=== PATIENT | male | born 1950 | race Caucasian/White ===

== ENCOUNTER 2024-02-28 12:10 | Inpatient (IN) | payer MEDICARE, BC, OTHER, SELFPAY ==
[2024-02-28] VITALS (73 sets, daily range): BP systolic 75–155; BP diastolic 62–117; BMI 18.6
[2024-02-28] MEDS: ADENOCARD 6 MG IV (06:11)
[2024-02-28] MEDS: ADENOCARD 12 MG IV (06:14)
--- NOTE | 2024-02-28 06:16 | ED.GENMED ---
History of Present Illness
General
Chief Complaint: Heart Rate Problem
Source: patient and records
Time Seen by Provider: 02/28/24 06:16
History of Present Illness
History of Present Illness:
73-year-old male presents emergency department after being noted to have an elevated heart rate when he awoke this morning. Reportedly en route heart rate was between the 120s and 140s. With a pulse ox of 85% on room air. Patient's only complaint
is mild dyspnea. He is overall poor historian, and it is unclear when this dyspnea began. He denies associated fever, chills, chest pain or pressure, headache, abdominal pain. He also states that he is thirsty and his mouth feels dry. No other
complaints noted. Patient has a history of atrial fibrillation as documented on skilled nursing paperwork, it does not appear that he is anticoagulated.
Past History
Past History
ED Past Medical History: Other (Hypertension, hypercholesterolemia, CVA, testicular cancer, A-fib)
Social History
Tobacco: Non-smoker
Alcohol: None
Drug: None
Living: skilled nursing
Phy Exam
Physical Exam
Physical Exam:
GENERAL: Alert , in no apparent distress
EYE: pupils equal and reactive, no photophobia, conjunctive slightly pale
NECK: Supple, no significant adenopathy.
ENT: o/p clr, mm very dry
CARDIAC: Regular rate and rhythm, tachycardic.
LUNGS: Clear breath sounds bilaterally, no acute respiratory distress, no wheezes/rales/rhonchi
ABDOMEN: Soft, without focal tenderness, no r/g, no cvat
NEUROLOGICAL: Alert and oriented, baseline residual left-sided weakness
SKIN: Warm and dry, skin intact.
MUSCULOSKELETAL: No edema, well perfused.
PSYCH: Normal and appropriate interaction.
Scores
[id number] Score for Afib Stroke Risk
Age in Years (65=0, 65-74=1, >/=75=2): > or = 75
Sex (Female=+1): Male
Congestive Heart Failure History (Yes=+1): No
Hypertension History (Yes=+1): Yes
Stroke/TIA/Thromboembolism History (Yes=+2): Yes
Vascular Disease History (Yes=+1): No
Diabetes Mellitus (Yes=+1): No
Score: 5
Anticoagulation Recommendations: Recommend anticoagulation (as validated in nonvalvular fib)
Course
Orders/Labs/Results
Orders:
Orders
02/28/24 05:53
Electrocardiogram (*1) Urgent
Reason for Study: Other
Other Reason for Exam: Respiratory Distress
Cardiac Monitoring- Treatment ONCE
EKG- Treatment ONCE
O2 Therapy [RESP] Urgent
Titrate/Wean O2 to maintain O2 sat greater than (%): 93
Special Instructions: TO MAINTAIN CONTINUOUS O2 SATS >/= 93%
02/28/24 06:07
Adenosine [Adenocard] 6 mg .ROUTE .STK-MED ONE
02/28/24 06:11
Adenosine [Adenocard] 6 mg IV NOW STA
02/28/24 06:12
Adenosine [Adenocard] 12 mg .ROUTE .STK-MED ONE
Diltiazem HCl [Cardizem] 25 mg .ROUTE .STK-MED ONE
02/28/24 06:14
Adenosine [Adenocard] 12 mg IV NOW STA
02/28/24 06:16
Diltiazem 125 mg/125 ml Nss [Cardizem] 125 mg in 125 ml IV NOW
Initial dose in mg/hr, then titrate:: 5
Titrate to keep:: Heart rate 80-100 bpm
Titrate by mg/hr:: 5 mg/hr
Frequency of titrations (minutes):: 15
Maximum dose in mg/hr:: 15
Diltiazem HCl [Cardizem] 10 mg IV NOW STA
02/28/24 06:18
0.9% Sodium Chloride 500 ml [Nss] 500 ml IV BOLUS
02/28/24 07:02
Complete Blood Count/With Diff Urgent
Comprehensive Metabolic Panel Urgent
D-Dimer Urgent
NT-proBNP Urgent
PTT Urgent
Comment: ADDON
TSH Reflex To Free T4 Urgent
Comment: ADD ON
Troponin I Urgent
02/28/24 08:18
CT Chest Pe Study Urgent
Comment:
Reason For Exam: HYPOXIA, AFIB, SOB
02/28/24 10:08
Furosemide [Lasix] 20 mg IV NOW STA
02/28/24 10:09
PTT Urgent
Comment: Obtain baseline before beginning heparin infusion if not already collected
Heparin 3,600 units IV NOW STA
Nursing to Place Non Medication Order As Directed
Physician Order: PTT 6 hours after initial start of Heparin infusion
02/28/24 10:15
Heparin [id number] Units/250 ml 25,000 units in 250 ml IV PER PROTOCOL
Weight to be used for heparin protocol in kilograms (kg):: 60.5
Protocol:: Cardiac Tx/Acute Coronary
PTT Goal Range to be used:: PTT 73 to 111 seconds
Order type:: Initial
INITIAL Infusion Dose (UNITS/KG/hr) & then follow protocol:: 12 units/kg/hr
Infusion Dose in UNITS/hr & then follow protocol (UNITS/hr):: 750
INFUSION RATE in mL/hr & then follow protocol (mL/hr):: 7.5
PTT less than or equal to 64 seconds:: Increase rate by 200 units/hr (+ 2 mL/hr)
PTT 64.1 to 72.9 seconds:: Increase rate by 100 units/hr (+ 1 mL/hr)
PTT 73 to 111 seconds:: Target Range. No change in rate.
PTT 111.1 to 130.9 seconds:: Decrease rate by 100 units/hr (- 1 mL/hr)
PTT 131 to 199.9 seconds:: HOLD for 1 hr. Then decrease rate by 200 units/hr (- 2 mL/hr)
PTT greater than or equal to 200 seconds:: HOLD for 2 hrs & Notify Provider. Then decrease by 200 units/hr (-
2 mL/hr)
Lab follow-up:: Each change, PTT q6h until 2 consecutive are therapeutic. Then PTT
daily.
02/28/24 11:03
Add On- LAB Urgent
Tests Added?: PTT
02/28/24 11:13
CARDIOLOGY CONSULT Routine
Consulting Provider: Kurt Willis
Was physician already notified: Yes
02/28/24 11:50
Admit/Transfer Patient As Directed
Co-Sign Provider:
Level of Care: Inpatient admission
Assign to:: IMU- Intermediate Care
Physician / Group: Nirali Barry - hospitalists
Diagnosis: Chronic rapid AFib with RVR and acute CHF
Reason for Hospitalization: Chronic rapid AFib with RVR and acute CHF- IV Cardizem and IV Heparin
Expected length of stay greater than two midnights?: Yes
ELOS- Estimated Length of Stay in days: 4
I certify the patient meets the requirements for IP care: Yes
PRN Pain Medication Management As Directed
May give lesser potent ordered pain med per pt: Yes
preference::
Protocol:: Medication orders for pain may be administered in a
manner that supports deferring to patient preference
when the pt is:
- Requesting an ordered lesser potent pain medication.
Least to most potent pain medications are defined
as: acetaminophen < NSAID < tramadol < opioids
(morphine, oxycodone, hydromorphone).
- Requesting a lesser dose of the same medication IF
ORDERED.
- Requesting a less intrusive route of administration
if both routes are prescribed by the provider (PO <
IV).
02/28/24 11:51
Code Status As Directed
Resuscitation Status: Do not resuscitate
Reached after discussion with pt or family/Healthcare POA: Yes
Based on pt advanced directive or healthcare POA form: Yes
Decision communicated with: sister Jackie
DNR Bracelet Application ONCE
02/28/24 16:50
PTT Urgent
Abnormal Lab Results
02/28/24
07:02
WBC 12.2 H 10^3/uL
(4.8-10.8)
RDW 16.0 H %
(11.5-14.5)
MPV 11.7 H fL
(7.4-10.4)
Abs Immat Gran (auto) 0.1 H 10^3/uL
(0-0.05)
Absolute Neuts (auto) 8.8 H 10^3/uL
(1.4-6.5)
Absolute Monos (auto) 0.9 H 10^3/uL
(0.1-0.6)
Lymphocytes % 19.1 L %
(20.5-51.1)
APTT 40.0 H Sec
(23.4-35.0)
D-Dimer 2.82 H ug/mlFEU
(0.00-0.50)
Chloride 112 H mmol/L
(98-107)
Carbon Dioxide 17 L mmol/L
(22-30)
BUN 61 H mg/dl
(9-20)
Glucose 120 H mg/dl
(70-99)
Troponin I 0.287 H* ng/ml
Total Protein 6.1 L g/dl
(6.3-8.2)
Albumin 3.3 L g/dl
(3.5-5.0)
02/28/24 07:02
02/28/24 07:02
Vital Signs
Initial and Last Documented VS:
Initial Vital Signs
Pulse Resp BP Pulse Ox
150 20 98/74 96
02/28/24 05:55 02/28/24 05:55 02/28/24 05:55 02/28/24 05:55
Last Documented Vital Signs
Temp Pulse Resp BP Pulse Ox
97.2 F 106 32 111/76 97
02/28/24 06:38 02/28/24 13:15 02/28/24 13:15 02/28/24 13:11 02/28/24 13:15
*Critical Care Note
Total Time (30-74mins, 75-104mins- exclusive of procedures): 35
Update Note
Update Note:
Patient presents to the Emergency Department with elevated heart rate, dyspnea
Number and Complexity of Problems Addressed at the Encounter
� Chronic conditions affecting care:
� Acute Exacerbation and/or Progression of Chronic Illness:
� Differential Diagnosis includes: But not limited to arrhythmia such as SVT, A-fib, PE, ACS, medication reaction, etc. etc.
Amount and/or Complexity of Data to be Reviewed and Analyzed
� I performed an independent evaluation of and my interpretation is:
EKG: Read by me, SVT at a rate of 149, T wave inversions noted laterally likely related to LVH� No prior for comparison noted
CT:Rads read: 1. No pulmonary embolism is identified.
2. Post left lower lobectomy.
3. Small right pleural effusion and adjacent atelectasis. Bilateral increased interstitial opacity with multifocal mixed groundglass and airspace opacities which are predominantly peribronchovascular. While infection cannot be definitively
excluded, these findings are most likely related to interstitial and alveolar edema.
4. Cardiomegaly. Right atrial and left ventricular enlargement. Contrast reflux into the inferior vena cava and hepatic veins, a finding that may be seen in association with right heart dysfunction.
5. Secretions within the trachea.
6. Ectasia ascending aorta, 4.2 cm maximum diameter.
Xrays:
Laboratory Studies:
Other:
� Review of other/old records reveals: Review of skilled nursing notes reveals patient does have a history of A-fib maintained on metoprolol 12.5 mg twice daily no anticoagulation noted
� Clinical information was obtained by an independent historian:
� Prescriptions/Medications Considered but not given:
� Further testing considered but not performed:
Risk of Complications and/or Morbidity or Mortality of Patient Management
� Social determinants of health affecting care:
� Discussion with other providers (PCP, Hospitalists, Consultants, etc):
� Escalation of care including admission/observation vs risk of discharge considered: 6:20 AM patient given 6 mg of adenosine without effect. Patient given 12 mg of adenosine and noted to temporarily have a slower heart rate
with what appears to be an underlying A-fib, narrow complex. Rate return to the 140s, Cardizem started. 7:00 AM patient resting comfortably, on nasal cannula, pulse ox within normal limits. He had transient hypotension status post Cardizem bolus
however this is resolved, blood pressure now normal, Cardizem at 5 mg, heart rate in the low 110s. Will continue to monitor.
On 5mg/hr cardizem gtt, sbp low 100's. No PE. Heparin ordered, Chads vasc 5. No cp. Will admit, hospitalist made aware. Suspect hf related to afib, trop elevation likely demand ischemia.
ED Attending Note
-
Portions of this chart may have been created with voice recognition software.� Occasional wrong word or��sound alike� substitutions may have occurred due to the inherent limitations of voice recognition software.
Discharge Plan
Departure
Patient Disposition: Admit
Date of Disposition: 02/28/24
Time of Disposition: 10:12
Admit to: Telemetry
Presentation/result/management discussed w/ accepting MD/DO: Hospitalist
Condition: Fair
Discharge Problem:
A-fib, Heart failure
Interventions
Interventions:
*Risk Screen - Suicide Last Done: 02/28/24 05:57
*General Assessment Last Done: 02/28/24 05:57
*Neglect/Abuse Screening Last Done: 02/28/24 05:57
ED- Fall Risk Assessment Last Done: 02/28/24 05:57
*ED COVID-19 Vaccine History Last Done: 02/28/24 05:57
ED- Cardiac Assessment Last Done: 02/28/24 06:00
ED- Pulmonary Assessment Last Done: 02/28/24 06:00
[2024-02-28] MEDS: NSS 500 IV (06:18)
[2024-02-28] MEDS: CARDIZEM 10 MG IV (06:26)
[2024-02-28] MEDS: CARDIZEM 125 IV (06:40)
[2024-02-28 07:14] LABS: % Basophils 0.4 % (0-2); % Eosinophils 0.2 % (0-6); % Immature Granulocytes 0.5 % (0-0.5); % Lymphocytes 19.1 % (20.5-51.1); % Monocytes 7.7 % (1.7-9.3); % Neutrophils 72.1 % (42.2-75.2); Absolute Basophils 0.1 10^3/uL (0-0.2); Absolute Immature Granulocytes 0.1 10^3/uL (0-0.05); Absolute Lymphocytes 2.3 10^3/uL (1.2-3.4); Absolute Monocytes 0.9 10^3/uL (0.1-0.6); Absolute Neutrophils 8.8 10^3/uL (1.4-6.5); Hematocrit 45.2 % (39.0-52.0); Hemoglobin 15.2 g/dL (13.0-18.0); Mean Corp Hgb Conc. 33.6 g/dL (33.0-37.0); Mean Corpuscular Hgb 29.1 pg (27.0-31.0); Mean Corpuscular Volume 86.4 fL (80.0-94.0); Mean Platelet Volume 11.7 fL (7.4-10.4); Nucleated Red Blood Cells % 0 % (-); Platelet Count 217 10^3/uL (130-400); Red Blood Cell Count 5.23 10^6/uL (4.70-6.10); White Blood Cell Count 12.2 10^3/uL (4.8-10.8)
[2024-02-28 07:22] LABS: ALT (SGPT) 13 U/L (0-50); AST (SGOT) 17 U/L (17-59); Albumin 3.3 g/dl (3.5-5.0); Alkaline Phosphatase 83 U/L (38-126); Blood Urea Nitrogen 61 mg/dl (9-20); Calcium 8.5 mg/dl (8.4-10.2); Carbon Dioxide 17 mmol/L (22-30); Chloride 112 mmol/L (98-107); Estimated Creatinine Clearance 55 ml/min; Glucose 120 mg/dl (70-99); Potassium 4.1 mmol/L (3.5-5.1); Sodium 140 mmol/L (135-145); Total Bilirubin 1.2 mg/dl (0.2-1.3); Total Protein 6.1 g/dl (6.3-8.2); eGFR > 60.00
[2024-02-28 07:35] LABS: NT-proBNP 13300 pg/ml; Troponin I 0.287 ng/ml
[2024-02-28 08:12] LABS: D-Dimer 2.82 ug/mlFEU (0.00-0.50)
[2024-02-28] MEDS: LASIX 20 MG IV (10:36)
[2024-02-28] MEDS: HEPARIN 3600 UNITS IV (10:51)
[2024-02-28] MEDS: HEPARIN 25000 UNITS/250 ML IV (10:52)
--- NOTE | 2024-02-28 11:26 | HPS.HSE ---
Family Physician
-
Family Physician: Tyron Gore
Chief Complaint
-
HR problem
History of Present Illness
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
from [facility] with elevated HR upon awaking. Patient is a poor historian so history is somewhat limited. Some of the chronic history was obtained through his sister Jackie who lives in [place]. He remembers experiencing some
central chest pain yesterday, but cannot characterize it. the chest pain is now resolved. He also mentions some dyspnea. At present denies anything except thirst. No fever/chills, no abd complaints. No palpitations. Hx per records does show chronic
A. Fib and for unclear reasons patient is not on AC.
Medical History
Past Medical History
Past Medical History: Reports Other ([place] patient since 2020, hx of chronic Afib, HLD, hx of CVA 2013 (L sided hemiplegia), PVD, Testicular cancer s/p removal, hx of lung cancer s/p resection ~2011, Anxiety/Depression, Essential HTN, chronic FTT,
former smoker)
Past Surgical History: Reports Other (testicular removal and lung resection)
Social History
Tobacco: Former Smoker
Alcohol: Occasional
Drug: None
Personal: Single
Living: Senior Living
Employment: Disabled
Family History
Family History: Not pertinent
Allergies / Home Medications
Allergies reflects when Allergies were last updated in [employer].
Home Medications with original date entered in [employer]
Allergy/Medication List:
Allergies
Allergy/AdvReac Type Severity Reaction Status Date / Time
No Known Allergies Allergy Unverified 02/28/24 05:56
Home Medications
acetaminophen 325 mg tablet (Tylenol) 650 mg PO Q4HPRN PRN MILD PAIN 02/28/24
bisacodyl 10 mg rectal suppository (Dulcolax (bisacodyl)) 10 mg KS DAILYPRN PRN IF NO BM AFTR MOM 02/28/24
eyelid cleansers pads 1 pad topical BID BOTH EYES 02/28/24
lisinopril 20 mg tablet 20 mg PO DAILY 02/28/24
magnesium hydroxide 400 mg/5 mL oral suspension (Milk of Magnesia) 2,400 mg PO DAILYPRN PRN CONSTIPATION 02/28/24
metoprolol tartrate 25 mg tablet 12.5 mg PO BID 02/28/24
mirtazapine 7.5 mg tablet 7.5 mg PO HS 02/28/24
sertraline 100 mg tablet 100 mg PO DAILY 02/28/24
simvastatin 10 mg tablet (Zocor) 10 mg PO HS 02/28/24
sodium phosphates 19 gram-7 gram/118 mL enema (Fleet Enema) 118 ml [place] DAILYPRN PRN IF NO BM AFTR DULCOLAX 02/28/24
Review of Systems
-
Unable to obtain full review of systems at this time due to: Acuity
Physical Exam
Vital Signs
Vital Signs
Temp Pulse Resp BP Pulse Ox
97.2 F 148 28 89/68 91
02/28/24 06:38 02/28/24 11:00 02/28/24 11:00 02/28/24 11:00 02/28/24 10:50
Physical Exam
General: Conversant, Appears Chronically Ill and Cachectic
HEENT: NormoCephalic and Anicteric
Respiratory: Clear
Cardiac: Irregular Rhythm and Tachycardia
GI: Soft
Musculoskeletal: Edema, Left Lower Extremity and Edema, Right Lower Extremity
Neuro: Awake, Alert and Other (L hemiplegia)
Psych: Calm
Laboratory Results
-
02/28/24 07:02
02/28/24 07:02
Laboratory Results
APTT 40.0 Sec (23.4-35.0) H 02/28/24 07:02
Total Bilirubin 1.2 mg/dl (0.2-1.3) 02/28/24 07:02
AST 17 U/L (17-59) 02/28/24 07:02
ALT 13 U/L (0-50) 02/28/24 07:02
Alkaline Phosphatase 83 U/L (38-126) 02/28/24 07:02
Troponin I 0.287 ng/ml H* 02/28/24 07:02
Data Reviewed
-
CT Scan: Report Reviewed by me
Lab Data: Labs Reviewed by me
Impression/Plan
-
Assessment:
Chronic Afib with RVR
- continue IV Cardizem drip; may need to consider Amio if BP limiting
- continue IV Heparin drip; CHADS-VASC of 7 (PVD, CVA, Age, HTN, CHF)
- CBC cards consulted
Acute CHF, unknown type
- CT Suggestive of interstitial edema
- obtain Echo
- current BP precludes IV diuretics currently, monitor I/Os, weights
- once hemodynamically more stable, can attempt diuresis
- CBC cards consulted
nonischemic myocardial injury from rapid Afib and acute CHF
- trend trops to peak
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
- obtain baseline CT head
Essential HTN
- hold KACIE/BB
HLD
PVD
- continue statin
Testicular cancer s/p removal
hx of lung cancer s/p LLL resection ~2011
Anxiety/Depression
- continue Zoloft
- home Remeron
chronic FTT
Cachexia
- nutrition evaluation
former smoker
DVT ppx: IV heparin
Code: DNR/DNI confirmed by sister Jackie and records
--- NOTE | 2024-02-28 12:12 | CON.CAR ---
Addendum entered and electronically signed by Kurt Willis MD 02/28/24 17:03:
Patient seen and examined in collaboration with STRATEGIC SOURCING SPECIALIST; agree with below. 73-year-old male with medical history as outlined below, including previous CVA with chronic left-sided weakness, cognitive impairment, chronic atrial fibrillation (not on
anticoagulation; reason unknown), lung cancer status-post previous resection brought to the ER from the alf due to elevated heart rates. Patient is a poor historian cardiology consulted for A-fib with RVR and suspected CHF.
-The patient underwent an echocardiogram today which revealed an LVEF of 20-25%.
-The patient is a poor candidate for any aggressive measures (ischemic workup or ICD); conservative cardiac management.
-Discontinue Cardizem drip (no benefit in CHF).
-Start Toprol-XL 25 mg daily.
-Will start digoxin load.
-Will start SGLT2-inhibitor.
-Further GDMT will likely be limited by blood pressure; may be able to tolerate a lower dose of lisinopril (currently on 20 mg at home) prior to discharge.
-Currently on a heparin drip started by the primary team; transition to NOAC, if no contraindication (patient was not on systemic anticoagulation as an outpatient).
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
Original Note:
Consultation
Consultation Request
Date/Time Consultation Requested: 02/28/24 1113
Date/Time Consultation Performed: 02/28/24 1222
Requesting Provider: Dr. Barry
Performing Provider: Augusta HALE for Dr. Willis
Reason for Consultation: AFIB, CHF
Medical History
-
Chief Complaint: tachycardia
History of Present Illness:
73 y/o male with hx CVA with chronic L-sided weakness and cognitive impairment, chronic AFIB per chart, but not on OAC, bradycardia (per chart), HTN, HLD, testicular cancer, lung cancer with hx resection, anxiety, and depression who is here for
evaluation of elevated HR noted at [place]. Here, he is in atrial flutter at 150 BPM. He did receive adenosine x 2 in ER. He is now on diltiazem and heparin drips. BP borderline at times. Otherwise, by EMS, his oxygen sat was noted to be low and he is on
O2 by CA. He does report some SOB. He is laying flat and is on RA currently, in no distress. 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
Past Medical History
Past Medical History: Arrhythmias, Cancer, CVA, HTN, Hypercholesterolemia and Psychiatric (anxiety/depression)
Social History
Tobacco: Former Smoker (per chart)
Living: Alf
Family History
Family History: Reviewed & Not Pertinent
Allergies / Home Medications
Allergy/AdvReac Type Severity Reaction Status Date / Time
No Known Allergies Allergy Unverified 02/28/24 05:56
�Medication �Instructions �Recorded �Confirmed �Type
acetaminophen 325 mg tablet 650 mg PO Q4HPRN PRN MILD PAIN 02/28/24 02/28/24 History
(Tylenol)
bisacodyl 10 mg rectal suppository 10 mg [place] DAILYPRN PRN IF NO BM 02/28/24 02/28/24 History
(Dulcolax (bisacodyl)) AFTR MOM
eyelid cleansers pads 1 pad topical BID BOTH EYES 02/28/24 02/28/24 History
lisinopril 20 mg tablet 20 mg PO DAILY 02/28/24 02/28/24 History
magnesium hydroxide 400 mg/5 mL 2,400 mg PO DAILYPRN PRN 02/28/24 02/28/24 History
oral suspension (Milk of Magnesia) CONSTIPATION
metoprolol tartrate 25 mg tablet 12.5 mg PO BID 02/28/24 02/28/24 History
mirtazapine 7.5 mg tablet 7.5 mg PO HS 02/28/24 02/28/24 History
sertraline 100 mg tablet 100 mg PO DAILY 02/28/24 02/28/24 History
simvastatin 10 mg tablet (Zocor) 10 mg PO HS 02/28/24 02/28/24 History
sodium phosphates 19 gram-7 118 ml [place] DAILYPRN PRN IF NO BM 02/28/24 02/28/24 History
gram/118 mL enema (Fleet Enema) AFTR DULCOLAX
Review of Systems
-
History Source: Patient and Other (chart)
Respiratory: Trouble Breathing
Physical Exam
Vital Signs
Temp Pulse Resp BP Pulse Ox
97.2 F 150 17 104/90 96
02/28/24 06:38 02/28/24 12:00 02/28/24 12:00 02/28/24 12:00 02/28/24 12:00
Lab Results
02/28/24 07:02
02/28/24 07:02
Troponin I 0.287 ng/ml H* 02/28/24 07:02
Pzy-A-Zfxpcqbouoo Pept 97334 pg/ml 02/28/24 07:02
Physical Exam
General: No Apparent Distress
HEENT: Normocephalic
Respiratory: Other (absent LLL, otherwise clear lungs to my assessment)
Cardiac: Irregular Rhythm
Musculoskeletal: No Edema
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
Psych: Calm
Impression / Plan
-
Atrial flutter, fast, type unknown:
-hx permanent AFIB per chart. Rates currently fast. Continue IV diltiazem, which requires intensive monitoring. BP on low end, so will need to monitor.
-not on OAC with reason unclear. He has a [id number] score of 6 for age, HTN, hx CVA, CHF. IV heparin initiated (which requires intensive monitoring). No obvious contraindication to AC on my review (with elevated risk for stroke as noted), so
likely transition to PO. Details of previous stroke unclear- CT head pending.
-check echo once HR better, TSH added to labs
Acute HF (type unknown):
-BNP 13,[address] scan suggestive excess fluid
-given dose of IV lasix- monitor response- he does not look like he needs another dose today- reassess in AM
-echo when HR better
Abnormal troponin:
-suspect acute non-ischemic myocardial injury in setting of AFIB with RVR
-trend to peak
-obtain echo when HR is better
HTN:
-hold ACEI as BP on low end
-continue metoprolol and diltiazem
-follow BP/HR
Data Reviewed
-
EKG: Tracing Personally Visualized and interpreted (atrial flutter [address] Scan: Report Reviewed by me (Chest CT: No pulmonary embolism, Post left lower lobectomy, Small R pleural effusion and adjacent atelectasis. Bilateral increased interstitial opacity with multifocal mixed groundglass and airspace opacities which
are predominantly peribronchovascular. Cardiomegaly...) and Other (Right atrial and left ventricular enlargement. Contrast reflux into the inferior vena cava and hepatic veins, Secretions within the trachea. Ectasia ascending aorta, 4.2 cm)
Labs: Labs Reviewed by me
--- NOTE | 2024-02-28 16:45 | W.PN.UPDATE ---
Addendum entered and electronically signed by Kurt Willis MD 02/28/24 17:14:
Agree with below.
-Contacted the long term who was unable to give an answer as to why patient is not on anticoagulation, as he has chronic atrial fibrillation.
-The patient may not be on anticoagulation for multiple reasons--including a significant bleed previously, hemorrhagic stroke, etc.
-Will discontinue heparin drip due to the aforementioned; maintain conservative management.
Original Note:
Update Note
Progress Note Update
Patient's echo revealed EF 20-25%. Will stop diltiazem drip, will start Toprol XL 25 mg daily. Will start digoxin with load 250 mcg IV now and 250 mcg IV 6 hours, and 125 mcg PO daily to start. Adjust as needed. Overall plan for conservative
management. Discussed with RN and updated Dr. Barry.
--- NOTE | 2024-02-28 16:52 | PTOTSP ---
ST Acute Care Evaluation
Pt currently presents with clinical symptoms of mild to moderate oropharyngeal dysphagia.
Recommendations:
- NPO x meds whole/crushed in puree.
- ARHP - ice chips sparingly after oral care, only when pt is fully awake/alert.
- Aspiration precautions: ARHP/meds only when pt is fully awake, alert, and upright; oral care QID; suctioning if needed.
- GAS ENGINE PERFORMANCE ENGINEER to f/u to re-assess pt's candidacy for PO diet initiation as well as to determine whether or not pt would benefit from an instrumental swallow study.
[2024-02-28 16:59] LABS: APTT > 200 Sec (23.4-35.0)
[2024-02-28 17:01] LABS: Troponin I 0.267 ng/ml
[2024-02-28] MEDS: TOPROL XL 25 MG PO (17:12)
[2024-02-28] MEDS: LANOXIN 250 MCG IV ×2 (17:15→22:18)
--- NOTE | 2024-02-28 18:11 | PTCARENOTE ---
Rec'd pt on admission from [facility], confused at times. Remains in A fib. BP stable. on room air. oriented to unit as best as possible given cognitive limitations.
[2024-02-28] MEDS: LIPITOR PO (22:17)
[2024-02-28 22:54] LABS: Troponin I 0.236 ng/ml
[2024-02-29] VITALS (24 sets, daily range): BP systolic 133–169; BP diastolic 97–142; PULSE 94; O2SAT 97–98; BMI 17.7
[2024-02-29 04:09] LABS: Hematocrit 47.2 % (39.0-52.0); Hemoglobin 15.9 g/dL (13.0-18.0); Mean Corp Hgb Conc. 33.7 g/dL (33.0-37.0); Mean Corpuscular Hgb 29.7 pg (27.0-31.0); Mean Corpuscular Volume 88.2 fL (80.0-94.0); Mean Platelet Volume 11.3 fL (7.4-10.4); Platelet Count 160 10^3/uL (130-400); Red Blood Cell Count 5.35 10^6/uL (4.70-6.10); Red Cell Dist. Width 15.7 % (11.5-14.5); White Blood Cell Count 9.1 10^3/uL (4.8-10.8)
[2024-02-29] MEDS: LOPRESSOR 5 MG IV (04:12)
[2024-02-29 04:21] LABS: Blood Urea Nitrogen 55 mg/dl (9-20); Carbon Dioxide 25 mmol/L (22-30); Chloride 110 mmol/L (98-107); Estimated Creatinine Clearance 52 ml/min; Glucose 93 mg/dl (70-99); Magnesium 2.4 mg/dl (1.6-2.3); Potassium 4.2 mmol/L (3.5-5.1); Sodium 142 mmol/L (135-145); eGFR > 60.00
--- NOTE | 2024-02-29 04:25 | PTCARENOTE ---
pt with increasing BP throughout night, pt sleeping. notified covering MANAGEMENT INTERN, orders entered for IV lopressor. med given per SEP.
[2024-02-29 04:32] LABS: Troponin I 0.278 ng/ml
[2024-02-29 04:55] LABS: TSH 4.27 uIU/ml (0.47-4.68)
--- NOTE | 2024-02-29 08:45 | W.PN.CD ---
Today's Communication / Plan
-
Digxoin . has received 2 daose. willneed Digoxin level later in the week
continue metoprolol
continue current diruetic and monitor renal functiona nd BP
lsinopril was held de to concern of BP [facility] is currently stable. would restart at lower dose.
Impression / Plan
-
Atrial flutter, fast, type unknown:
- continue rate control
-hx permanent AFIB per chart. Rates currently fast.
-not on OAC ( please seen update note from 02/29/24) He has a [id number] score of 6 for age, HTN, hx CVA, CHF. IV heparin initiated (which requires intensive monitoring). No obvious contraindication to AC on my review (with elevated risk for stroke
as noted)
- continue metoprolol and digpoxin. willl avoid cardizem with low EF
Acute HF/ HFrEF
- EF 20-25% by echo 02/28/24.
-BNP 13,[address] scan suggestive excess fluid
- GDMT as BP allows Was on lisinopril prior to admit but held for BP
Abnormal troponin:
-suspect acute non-ischemic myocardial injury in setting of AFIB with RVR
-trend to peak
-obtain echo when HR is better
HTN:
-hold ACEI as BP on low end
-continue metoprolol and diltiazem
-follow BP/HR
Physical Exam
Vital Signs/Labs
Vital Signs
Temp Pulse Resp BP Pulse Ox
96.1 F L 82 19 146/114 94
02/29/24 03:54 02/29/24 06:00 02/29/24 06:00 02/29/24 06:00 02/28/24 20:37
02/28/24 02/29/24 03/01/24
06:59 06:59 06:59
Actual Weight 60.5 kg 57.5 kg
02/29/24 03:41
02/29/24 03:41
APTT > 200 Sec (23.4-35.0) H* 02/28/24 16:29
Magnesium 2.4 mg/dl (1.6-2.3) H 02/29/24 03:41
TSH 4.27 uIU/ml (0.47-4.68) 02/29/24 03:41
02/28/24
07:02
Bhi-J-Nbnzowxyiqu Pept [id number]
LAB Results
02/28/24 02/28/24 02/28/24
07:02 16:29 22:15
Troponin I 0.287 H* 0.267 H* 0.236 H*
02/29/24
03:41
Troponin I 0.278 H*
Physical Exam
Constitutional: No acute distress
Cardiovascular: Rhythm/rate is irregular
Respiratory: Respiratory effort normal
GI: Soft
Neuro/Psych: Alert
Data Reviewed
-
Date of Service: February 29, 2024
[2024-02-29] MEDS: ZOLOFT 100 MG PO (09:29)
[2024-02-29] MEDS: FARXIGA 10 MG PO (09:29)
[2024-02-29] MEDS: TOPROL XL 25 MG PO (09:29)
--- NOTE | 2024-02-29 11:06 | PTOTSP ---
Pt is dependent for any mobility and mostly bedbound per pt at baseline. Recommend nursing staff use [facility] lift for safer transfers. Pt is dependent at baseline and has no acute rehab goals. D/w Dr. Barry. Anticipate pt returning to [place] where he is a
permanent resident. PT will sign off.
--- NOTE | 2024-02-29 11:20 | W.PN.HOSP.TC ---
Today's Communication/Plan
-
add back Lisinopril at 5mg
Initiate IV Lasix
Assessment / Plan
Assessment / Plan
Assessment:
Chronic A flutter with RVR
Underlying permanent Afib listed in records
- continue Toprol XL/Digoxin
- CHADS-VASC of 7 (PVD, CVA, Age, HTN, CHF); unclear why previously not on AC but at this juncture considered higher bleeding risk or fall risk.
- CBC cards following
Acute HFrEF
- CT Suggestive of interstitial edema
- Echo: EF 20-25%
- BNP 93293; start IV Lasix 20mg daily; requires intensive monitoring of I/Os, weights, lytes
- continue GDMT: BB, KACIE as BP allows. Farxiga.
nonischemic myocardial injury from rapid Afib and acute CHF
- trops relatively flat at .23 to .27 range
- conservative management
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
- CT head no acute abnormalities
Essential HTN
- continue KACIE/BB
HLD
PVD
- continue statin
Testicular cancer s/p removal
hx of lung cancer s/p LLL resection ~2011
Anxiety/Depression
- continue Zoloft
- home Remeron
chronic FTT
Cachexia
- nutrition evaluation and supplements when cleared by speech therapy
Dysphagia
- VSE scheduled
former smoker
DVT ppx: SC heparin
Code: DNR/DNI confirmed by sister Jackie and records
Anticipated Discharge: > 48 hours
Subjective/Interval History
-
Date of Service: February 29, 2024
more alert today, less SOB
tolerating new meds Toprol and Digoxin
did not pass bedside speech eval and VSE requested
Objective Data
-
Labs:
Laboratory Results
08/01/24
03:41
WBC 9.1
Hgb 15.9
Hct 47.2
Plt Count 160 D
Sodium 142
Potassium 4.2
Chloride 110 H
Carbon Dioxide 25
BUN 55 H
Creatinine 1.0
Glucose 93
Calcium 9.0
Vital Signs:
Vital Signs
Temp Pulse Resp BP Pulse Ox
97.1 F 90 19 146/116 94
02/29/24 07:55 02/29/24 09:29 02/29/24 06:00 02/29/24 09:29 02/28/24 20:37
I&O
02/28/24 02/29/24 03/01/24
06:59 06:59 06:59
Output Total 100 / 100
Balance -100 / -100
Physical Exam
-
General: Appears Chronically Ill
HEENT: Normocephalic and Atraumatic
Respiratory: Clear to Auscultation; Negative Wheezes or Rales
Cardiac: Irregular Rhythm
GI: Soft
Musculoskeletal: No Edema
Neuro: AO x 3
Hematologic / Lymphatic: No Lymphadenopathy
Psych: Calm
Data Reviewed
-
Total Time Spent with Patient (in minutes): 51
Labs: Labs Reviewed by me
[2024-02-29] MEDS: LANOXIN 125 MCG PO (13:25)
[2024-02-29] MEDS: ZESTRIL 5 MG PO ×2 (13:25→17:33)
[2024-02-29] MEDS: LASIX 20 MG IV (13:26)
--- NOTE | 2024-02-29 15:17 | CM ---
Patient from [facility] with Hx CVA with left hemiplegia, depression with Dx Rapid Afib, HF. Room air. Receiving IV Lasix. PT & OT; No skilled PT/OT needed.
Spoke with Leilani, [facility];
the patient resides there in LTC and is on an MA bed hold. He has some confusion at times, requires max assist for sit-stand and is transferred OOB to chair with mechanical lift. He requires mod assist for UB dressing and is dependent for LB
dressing & toileting. He was not skilled/not receiving any PT/OT. Pharmacy - [facility]. The ph for report [phone], fax [phone]. If patient returns on the weekend, contact [facility] health education specialist (Leilani will be away this weekend).
Plan contact patient's family prior to return to SNF.
Plan return to [facility] when medically ready.
[2024-02-29] MEDS: LOVENOX 40 MG SC (17:37)
--- NOTE | 2024-02-29 19:34 | PTCARENOTE ---
Assumed care of pt this am who has no complaints throughout the shift. He is NPO until after a VSE in the am and needs reminders as to the concerns with his swallowing. Pt had no signs of aspirations with ice chips and meds crushed in applesauce. He
is oriented but forgetful, left Clyde limits his ability to participate in self care. BPs remain elevated through shift, even with Lisinopril added today. Dr. Morocho notified and a now dose of Lisinopril mg given.
[2024-02-29] MEDS: LIPITOR 10 MG PO (21:04)
--- NOTE | 2024-02-29 21:11 | PTCARENOTE ---
Pt drowsy, but arousable. New small blood pressure cuff placed which fits more appropriately, similar BP results obtained. Pt able to swallow lipitor crushed in applesauce without complication. No complaints noted at this time. Will keep pt NPO as
per previous RN report and note.
[2024-03-01] VITALS (14 sets, daily range): BP systolic 130–181; BP diastolic 95–139; BMI 17.0
[2024-03-01 05:59] LABS: Hematocrit 47.6 % (39.0-52.0); Hemoglobin 15.8 g/dL (13.0-18.0); Mean Corp Hgb Conc. 33.2 g/dL (33.0-37.0); Mean Corpuscular Hgb 28.9 pg (27.0-31.0); Mean Corpuscular Volume 87.2 fL (80.0-94.0); Mean Platelet Volume 11.1 fL (7.4-10.4); Platelet Count 182 10^3/uL (130-400); Red Blood Cell Count 5.46 10^6/uL (4.70-6.10); Red Cell Dist. Width 15.5 % (11.5-14.5); White Blood Cell Count 8.4 10^3/uL (4.8-10.8)
[2024-03-01 06:48] LABS: Blood Urea Nitrogen 43 mg/dl (9-20); Calcium 8.9 mg/dl (8.4-10.2); Carbon Dioxide 22 mmol/L (22-30); Chloride 111 mmol/L (98-107); Estimated Creatinine Clearance 55 ml/min; Glucose 82 mg/dl (70-99); Potassium 4.2 mmol/L (3.5-5.1); Sodium 142 mmol/L (135-145); eGFR > 60.00
--- NOTE | 2024-03-01 08:03 | W.PN.CD ---
Today's Communication / Plan
-
- Conservative management
- Will follow the family discussion / decision.
Impression / Plan
-
Atrial flutter, fast, type unknown:
- continue rate control
-hx permanent AFIB per chart. Rates currently fast.
-not on OAC (please seen update note from 02/29/24) - He has a [id number] score of 6 for age, HTN, hx CVA, CHF. IV heparin initiated (which requires intensive monitoring). No obvious contraindication to AC on my review (with elevated risk for stroke
as noted). The risk of bleeding and falls was likely reason for not initiating his anticoagulation. Has been in permanent AF chronically.
-continue metoprolol and digoxin. will avoid Cardizem with low EF
Acute HF/ HFrEF
- EF 20-25% by echo 02/28/24.
- BNP 13,[address] scan suggestive excess fluid
- GDMT as BP allows Was on lisinopril prior to admit but held for BP
- Due to unclear goal of care, ICD may not be needed.
- If life expectancy is over a year and family wants full goal of care then should start anticoagulation and consider ICD. At this time agree with conservative approach.
Abnormal troponin:
-suspect acute non-ischemic myocardial injury in setting of AFIB with RVR
-trend to peak
-ECHO 02/27
- Left ventricular ejection fraction is 20-25%. Severe global hypokinesis.
Moderately to severely dilated left atrium. Severely dilated right atrium.
Mild to moderate mitral regurgitation.
HTN:
-hold ACEI as BP on low end
-continue metoprolol and diltiazem
-follow BP/HR
Physical Exam
Vital Signs/Labs
Vital Signs
Temp Pulse Resp BP Pulse Ox
97.5 F 79 16 155/132 97
03/01/24 03:47 03/01/24 06:28 03/01/24 06:28 03/01/24 06:28 02/29/24 21:20
02/29/24 03/01/24 03/02/24
06:59 06:59 06:59
Actual Weight 57.5 kg 55.2 kg
03/01/24 05:42
03/01/24 05:42
APTT > 200 Sec (23.4-35.0) H* 02/28/24 16:29
Magnesium 2.4 mg/dl (1.6-2.3) H 02/29/24 03:41
TSH 4.27 uIU/ml (0.47-4.68) 02/29/24 03:41
02/28/24
07:02
Brc-X-Paeqavllmfo Pept [id number]
LAB Results
02/28/24 02/28/24 02/28/24
07:02 16:29 22:15
Troponin I 0.287 H* 0.267 H* 0.236 H*
02/29/24
03:41
Troponin I 0.278 H*
Physical Exam
Constitutional: No acute distress and Comfortable
Cardiovascular: Pedal edema is absent, Rhythm/rate is irregular and Systolic murmur present
Respiratory: Respiratory effort normal, Wheeze Absent and Crackles Absent
GI: Soft and Non tender
Data Reviewed
-
Date of Service: March 01, 2024
Medical Decision Making: Reviewed Test Results, Independent Historian Assessment, Test Interpretation and Review of Case with other Provider
EKG: Tracing Personally Visualized and interpreted
Echo: Report Reviewed by me
Labs: Labs Reviewed by me
Old Records: Reviewed
[2024-03-01] MEDS: LASIX 20 MG IV (08:06)
[2024-03-01] MEDS: TOPROL XL 25 MG PO (08:09)
[2024-03-01] MEDS: ZESTRIL 10 MG PO (08:09)
[2024-03-01] MEDS: FARXIGA 10 MG PO (08:09)
[2024-03-01] MEDS: ZOLOFT 100 MG PO (08:09)
--- NOTE | 2024-03-01 08:12 | PTCARENOTE ---
Pt AAOx3, drowsy Bp 170/130 meds given crushed in applesauce . will try for VS when bp not as high
--- NOTE | 2024-03-01 10:41 | PTCARENOTE ---
Pt to VS via stretcher.
[2024-03-01] MEDS: LANOXIN 125 MCG PO (11:51)
--- NOTE | 2024-03-01 12:38 | PTCARENOTE ---
Pt has vs, DR Barry will talk with sister re results and further plan of care
--- NOTE | 2024-03-01 13:19 | PTOTSP ---
Video Swallow Study
Summary: Patient with moderate-severe oral and severe pharyngeal dysphagia for consistencies (thin, nectar) assessed with aspiration of all consistencies with an inconsistent and ineffective cough response. See patient care note for details.
Recommend:
1. NPO - consider temporary non-oral means
2. Medications - non-oral
3. Oral care 3x daily
4. Aspiration Risk Hydration Protocol - ice chips sparingly after oral care with supervision
5. Dysphagia therapy at the acute care level and after D/C from acute care.
--- NOTE | 2024-03-01 14:29 | W.PN.HOSP.TC ---
Today's Communication/Plan
-
continue IV Lasix and conservative cardiac management
GOC discussion with family/patient
Assessment / Plan
Assessment / Plan
Assessment:
Chronic A flutter with RVR
Underlying permanent Afib listed in records
- continue Toprol XL/Digoxin
- CHADS-VASC of 7 (PVD, CVA, Age, HTN, CHF); unclear why previously not on AC but at this juncture considered higher bleeding risk or fall risk.
- CBC cards following
Acute HFrEF
- CT Suggestive of interstitial edema
- Echo: EF 20-25%
- BNP 36331; start IV Lasix 20mg daily; requires intensive monitoring of I/Os, weights, lytes
- continue GDMT: BB, KACIE as BP allows. Farxiga.
nonischemic myocardial injury from rapid Afib and acute CHF
- trops relatively flat at .23 to .27 range
- conservative management
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
- CT head no acute abnormalities
Essential HTN
- continue KACIE/BB
HLD
PVD
- continue statin
Testicular cancer s/p removal
hx of lung cancer s/p LLL resection ~2011
Anxiety/Depression
- continue Zoloft
- home Remeron
chronic FTT
Cachexia
- nutrition evaluation and supplements when cleared by speech therapy
Dysphagia
- VSE; aborted as patient could not clear mildly thick liquids from airway
- NPO for now, may need to consider comfort feeds with hospice vs PEG if family wishes for this.
former smoker
DVT ppx: SC heparin
Code: DNR/DNI confirmed by sister Jackie and records
Anticipated Discharge: > 48 hours
Subjective/Interval History
-
Date of Service: March 01, 2024
patient did not pass VSE
Objective Data
-
Labs:
Laboratory Results
03/01/24
05:42
WBC 8.4
Hgb 15.8
Hct 47.6
Plt Count 182
Sodium 142
Potassium 4.2
Chloride 111 H
Carbon Dioxide 22
BUN 43 H
Creatinine 0.9
Glucose 82
Calcium 8.9
Vital Signs:
Vital Signs
Temp Pulse Resp BP Pulse Ox
97.3 F 95 15 138/119 96
03/01/24 11:54 03/01/24 14:00 03/01/24 14:00 03/01/24 14:00 03/01/24 10:00
I&O
02/29/24 03/01/24 03/02/24
06:59 06:59 06:59
Intake Total 120 / 120
Output Total 100 / 100 200 / 200
Balance -100 / -100 -80 / -80
Physical Exam
-
General: Appears Chronically Ill
HEENT: Normocephalic and Atraumatic
Respiratory: Negative Wheezes
Cardiac: Regular Rhythm and S1/S2
GI: Soft
Genito-urinary: No Costovertebral Tender
Musculoskeletal: No Edema
Neuro: AO x 3
Psych: Calm
Data Reviewed
-
Total Time Spent with Patient (in minutes): 51
Labs: Labs Reviewed by me
--- NOTE | 2024-03-01 14:46 | PN.CDI ---
CDI
- -
CDI:
Physician Documentation Request
Admit Date: 02/28/24 12:10
Dear Doctor Jhonny,
Please review the following and provide your response in the progress notes.
Clinical Indicators:
Pt admitted with Atrial flutter/ Acute Systolic CHF
Documented per Wound care panel 02/27, ' Present on admission sacrum pressure injury stage 1 silicone border foam.'
Physician documentation of the type and location of wounds is required for compliant documentation. Based on the above clinical findings and your assessment, please provide the following in your progress note:
1. Location of the ulcer/wound, including laterality.
2. Type (etiology) of ulcer/wound:
- Pressure (decubitus) ulcer
- Non-pressure injury
- Other
Use of terms such as suspected, likely, concern for, or probable (associated with a specific diagnosis that is being evaluated, monitored, or treated as if it exists) are acceptable and can be coded in the inpatient setting, when documented at the
time of discharge.
Thank you,
Jessi Owen RN
CDI Specialist
[place] [facility]
Please use your independent medical judgment in providing your response.
*Source: National Pressure Ulcer Advisory Panel (NPUAP)
--- NOTE | 2024-03-01 14:55 | PN.CDI ---
CDI
- -
CDI:
Physician Documentation Request
Admit Date: 02/28/24 12:10
Dear Doctor Jhonny,
Please review the following and provide your response in the progress notes.
Clinical Indicators:
Pt admitted with Atrial flutter/ Acute Systolic CHF
Documented in the record FTT, BMI 17.0, Cachexia
Progress notes 02/28 & 03/01, ' chronic FTT Cachexia nutrition evaluation and supplements when cleared by speech therapy.'
Nutrition consult 02/28, ' CBW (02/28) 126lb 12.253oz BMI 17.7 underwt/ht, (02/27) 133lb 6.075oz ..Pt meets criteria for severe protein calorie malnutrition of chronic illness with suspected prolonged inadequate po intake <75% for >1 month, severe
subcutaneous fat (tricep, orbital) and muscle (temporal, clavicle, quads, calf) loss per physicial assessment. Nutrition to follow diet advancement as per level of care..'
Based on the above information and your assessment, which of the following most accurately represents the patient's nutritional status?
Severe protein Calorie Malnutrition
Other (please specify)
[place] Criteria (ACP Hospitalist 2017)
2 or more criteria must be present for either
non severe or severe malnutrition
Note that the criteria differs related to the
presence of an acute or chronic illness
Acute Illness Chronic Illness
Energy Intake Non Severe: <75% for >7 days Non Severe: <75% for >1 month
Severe: <50% for >5 days Severe: <75% for >1 month
Weight Loss Non Severe: 1-2% over 1 week Non Severe: 5% over 1 month
5% over 1 month 7.5% over 3 months
7.5% over 3 months 10% over 6 months
1 year N/A 20% over 1 year
Severe: >2% over 1 week Severe: >5% over 1 month
>5% over 1 month >7.5% over 3 months
>7.5% over 3 months >10% over 6 months
1 year N/A >20% over 1 year
Body Fat Non Severe: Mild Decrease Non Severe: Mild Loss
Severe: Moderate Decrease Severe: Severe Loss
Muscle Mass Non Severe: Mild Decrease Non Severe: Mild Loss
Severe: Moderate Decrease Severe: Severe Loss
Fluid Accumulation Non Severe: Mild Accumulation Non Severe: Mild Accumulation
Severe: Moderate to severe Severe: Moderate to severe
accumulation accumulation
Reduced Powder Guard Strength Non Severe: N/A Non Severe: N/A
Severe: Measurably reduced Severe: Measurably reduced
Use of terms such as suspected, likely, concern for, or probable (associated with a specific diagnosis that is being evaluated, monitored, or treated as if it exists) are acceptable and can be coded in the inpatient setting, when documented at the
time of discharge.
Thank you,
Jessi Owen RN
CDI Specialist
[place] [facility]
Please use your independent medical judgment in providing your response.
--- NOTE | 2024-03-01 15:56 | PTCARENOTE ---
Pt sister called earlier for update. Sister aware that he failed video swallow and can not have food by mouth. Told of 2 options sister stated that he would never want a feeding tube. and thought comfort care would be the better option. Dr Barry tt
re conversation and he will call her. Message relayed to Jackie (sister)
[2024-03-01] MEDS: LOVENOX 40 MG SC (16:47)
--- NOTE | 2024-03-01 22:07 | PTCARENOTE ---
Pt received from previous RN. Pt responds appropriately to all orientation questions, Pt is noted to be drowsy by this RN. Pt Afib on monitor. 98% on RA. CC #[id number], bag emptied for 300ml dark yellow urine. Q2 turn maintained. Call light in reach.
[2024-03-01] MEDS: LIPITOR PO (23:30)
[2024-03-02] VITALS (14 sets, daily range): BP systolic 118–161; BP diastolic 86–131; BMI 16.5
[2024-03-02 05:57] LABS: Hematocrit 51.4 % (39.0-52.0); Hemoglobin 16.8 g/dL (13.0-18.0); Mean Corp Hgb Conc. 32.7 g/dL (33.0-37.0); Mean Corpuscular Hgb 29.4 pg (27.0-31.0); Mean Platelet Volume 10.9 fL (7.4-10.4); Platelet Count 175 10^3/uL (130-400); Red Blood Cell Count 5.71 10^6/uL (4.70-6.10); Red Cell Dist. Width 15.3 % (11.5-14.5); White Blood Cell Count 7.6 10^3/uL (4.8-10.8)
[2024-03-02 06:41] LABS: Blood Urea Nitrogen 42 mg/dl (9-20); Calcium 9.2 mg/dl (8.4-10.2); Carbon Dioxide 26 mmol/L (22-30); Chloride 110 mmol/L (98-107); Estimated Creatinine Clearance 53 ml/min; Glucose 84 mg/dl (70-99); Potassium 4.1 mmol/L (3.5-5.1); Sodium 143 mmol/L (135-145); eGFR > 60.00
--- NOTE | 2024-03-02 08:06 | W.PN.HOSP.TC ---
Today's Communication/Plan
-
start comfort feeds. pureed diet, trial thin liquids, might have to thicken if any signs of distress.
transfer back to SNF Monday to initiate hospice services there
Assessment / Plan
Assessment / Plan
Assessment:
Chronic A flutter with RVR
Underlying permanent Afib listed in records
- continue Toprol XL/Digoxin
- CHADS-VASC of 7 (PVD, CVA, Age, HTN, CHF); unclear why previously not on AC but at this juncture considered higher bleeding risk or fall risk.
- CBC cards following
Acute HFrEF
- CT Suggestive of interstitial edema
- Echo: EF 20-25%
- BNP 08822; start IV Lasix 20mg daily; requires intensive monitoring of I/Os, weights, lytes
- continue GDMT: BB, KACIE as BP allows. Farxiga.
nonischemic myocardial injury from rapid Afib and acute CHF
- trops relatively flat at .23 to .27 range
- conservative management
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
- CT head no acute abnormalities
Essential HTN
- continue KACIE/BB
HLD
PVD
- continue statin
Testicular cancer s/p removal
hx of lung cancer s/p LLL resection ~2011
Anxiety/Depression
- continue Zoloft
- home Remeron
chronic FTT
severe protein calorie malnutrition of chronic illness with suspected prolonged inadequate po intake <75% for >1 month, severe subcutaneous fat (tricep, orbital) and muscle (temporal, clavicle, quads, calf) loss per physical assessment
- on comfort feeds
Dysphagia
- VSE; aborted as patient could not clear mildly thick liquids from airway
- patient/family has opted for comfort feeds and hospice care when discharged to SNF
sacrum pressure injury stage 1
- present on arrival
- wound care
former smoker
DVT ppx: SC heparin
Code: DNR/DNI confirmed by sister Jackie and records
Dispo: Long discussion with sister, family friends and patient. failed VSE and high risk for aspiration in setting of prior CVA, age, malnutrition, new CHF with weakness. PEG tube declined based off living will. All involved including patient ok
with comfort feeds and hospice at discharge. DC to SNF tomorrow and initiate hospice care there. CM aware.
Anticipated Discharge: Within 24 hours
Subjective/Interval History
-
Date of Service: March 02, 2024
remains NPO
long discussion with sister, patient and family friends and they confirm DNR and desire for hospice
Objective Data
-
Labs:
Laboratory Results
03/02/24
05:45
WBC 7.6
Hgb 16.8
Hct 51.4
Plt Count 175
Sodium 143
Potassium 4.1
Chloride 110 H
Carbon Dioxide 26
BUN 42 H
Creatinine 0.9
Glucose 84
Calcium 9.2
Vital Signs:
Vital Signs
Temp Pulse Resp BP Pulse Ox
96.5 F L 87 19 161/101 99
03/02/24 04:01 03/02/24 06:39 03/02/24 06:39 03/02/24 06:39 03/02/24 01:00
I&O
03/01/24 03/02/24 03/03/24
06:59 06:59 06:59
Intake Total 120 / 120
Output Total 200 / 200 550 / 550
Balance -80 / -80 -550 / -550
Physical Exam
-
General: Appears Chronically Ill
HEENT: Normocephalic and Atraumatic
Respiratory: Negative Wheezes
Cardiac: Regular Rhythm and S1/S2
GI: Soft
Musculoskeletal: No Edema
Psych: Calm
Data Reviewed
-
Total Time Spent with Patient (in minutes): 51
Labs: Labs Reviewed by me
[2024-03-02] MEDS: LASIX 20 MG IV (09:16)
[2024-03-02] MEDS: TOPROL XL PO (09:19)
[2024-03-02] MEDS: ZOLOFT PO (09:19)
[2024-03-02] MEDS: ZESTRIL PO (09:19)
[2024-03-02] MEDS: FARXIGA PO (09:19)
--- NOTE | 2024-03-02 10:30 | W.PN.CD ---
Today's Communication / Plan
-
-Patient currently with rate-controlled A-fib, but unable to tolerate PO intake.
-Will change digoxin from PO to IV.
-Will change from PO metoprolol to IV Lopressor.
-Can use IV hydralazine, if blood pressure remains elevated.
Impression / Plan
-
Permanent atrial fibrillation:
-Patient currently with rate-controlled A-fib, but unable to tolerate PO intake.
-not on OAC (please seen update note from 02/29/24) - He has a [id number] score of 6 for age, HTN, hx CVA, CHF. IV heparin initiated (which requires intensive monitoring). No obvious contraindication to AC on my review (with elevated risk for stroke
as noted). The risk of bleeding and falls was likely reason for not initiating his anticoagulation. Has been in permanent AF chronically.
-Will change digoxin from PO to IV.
-Will change from PO metoprolol to IV Lopressor.
Acute HF/ HFrEF
- EF 20-25% by echo 02/28/24.
- BNP 13,[address] scan suggestive excess fluid
- GDMT as BP allows Was on lisinopril prior to admit but held for BP
- Poor candidate for ICD.
- Maintain conservative management overall.
Abnormal troponin:
-suspect acute non-ischemic myocardial injury in setting of AFIB with RVR
-ECHO 02/27
- Left ventricular ejection fraction is 20-25%. Severe global hypokinesis.
Moderately to severely dilated left atrium. Severely dilated right atrium.
Mild to moderate mitral regurgitation.
HTN:
-Suboptimally controlled.
-Unable to tolerate PO lisinopril.
-Continue to monitor blood pressure with above changes.
-Can use IV hydralazine, if blood pressure remains elevated.
Physical Exam
Vital Signs/Labs
Vital Signs
Temp Pulse Resp BP Pulse Ox
98.0 F 97 19 132/107 99
03/02/24 07:08 03/02/24 09:16 03/02/24 06:39 03/02/24 09:16 03/02/24 01:00
03/01/24 03/02/24 03/03/24
06:59 06:59 06:59
Actual Weight 55.2 kg 53.8 kg
03/02/24 05:45
03/02/24 05:45
APTT > 200 Sec (23.4-35.0) H* 02/28/24 16:29
Magnesium 2.4 mg/dl (1.6-2.3) H 02/29/24 03:41
TSH 4.27 uIU/ml (0.47-4.68) 02/29/24 03:41
02/28/24
07:02
Wep-P-Wfrmhxzdstf Pept [id number]
LAB Results
02/28/24 02/28/24 02/29/24
16:29 22:15 03:41
Troponin I 0.267 H* 0.236 H* 0.278 H*
Physical Exam
Constitutional: No acute distress and Comfortable
EENT: Anicteric
Cardiovascular: Pedal edema is absent, Rhythm/rate is irregular, Systolic murmur present (2/6) and S1S2 is normal
Respiratory: Respiratory effort normal and Lungs clear to auscul. (Anteriorly)
GI: Soft
Neuro/Psych: Alert
Other: Skin (Warm, dry)
Data Reviewed
-
Date of Service: March 02, 2024
EKG: Tracing Personally Visualized and interpreted (Telemetry: Rate-controlled atrial fibrillation)
Labs: Labs Reviewed by me
[2024-03-02] MEDS: LOPRESSOR 2.5 MG IV ×2 (10:45→17:51)
[2024-03-02] MEDS: LANOXIN 125 MCG IV (11:56)
[2024-03-02] MEDS: FLUSH (NSS) 2 FLUSH IV ×2 (12:00→17:55)
--- NOTE | 2024-03-02 14:20 | CM ---
Addendum entered by Clarissa Slade 03/03/24 12:47:
CM contacted by Hospice confirming time for transfer to [facility]. Call to IMU to check time that was provided when transport arranged; confirmed 1pm flower picker as requested and notified Sunita Greco of same.
Addendum entered by Clarissa Slade 03/03/24 08:57:
1PM flower picker via ambulance requested for transfer to hospice at [facility].
[facility]
Report: [phone]

Original Note:
CM met with Hakan, his via phone, and family friends to discuss hospice services. All are in agreement with return to [facility] with Hospice Services which can start tomorrow after his arrival there.
CM will arrange transfer via ambulance in AM.
Plan: Discharge to [facility] with hospice services via Hospice. Patient and family aware of the plan and in agreement with [facility].
Will need Out of Hospital DNR completed prior to transfer.
--- NOTE | 2024-03-02 15:29 | PTCARENOTE ---
Received pt NPO status, cardiology notified and po. cardiac meds changed to IV route. Pt with hx of left hemiparesis. Pt pleasant cooperative but forgetful. Pt's sister Jackie and 2 family/friends conference with Dr. Barry and plan of care has been
conservative and will transition to Hospice [facility] as possible. Agreement pt will begin p.o. intake and risks are discussed, all in agreement to give pt p.o. as this is all he really requests to meet his quality of life needs
[2024-03-02] MEDS: LOVENOX 40 MG SC (17:50)
[2024-03-02] MEDS: LIPITOR 10 MG PO (19:44)
--- NOTE | 2024-03-02 23:41 | PTCARENOTE ---
assumed care of patient, pt is oriented but forgetful, arouses to verbal stimuli. q2t, foam used to help with turns. able to take pills crushed with applesauce. VSS, pulse ox dropping to low 80s while sleeping, 2L NC applied while asleep. bed alarm
on. care ongoing.
[2024-03-03] VITALS (7 sets, daily range): BP systolic 123–143; BP diastolic 80–109; BMI 16.2
[2024-03-03] MEDS: LOPRESSOR 2.5 MG IV ×3 (00:07→11:49)
[2024-03-03 04:43] LABS: Hematocrit 46.3 % (39.0-52.0); Hemoglobin 15.6 g/dL (13.0-18.0); Mean Corp Hgb Conc. 33.7 g/dL (33.0-37.0); Mean Corpuscular Hgb 29.3 pg (27.0-31.0); Mean Corpuscular Volume 86.9 fL (80.0-94.0); Mean Platelet Volume 10.8 fL (7.4-10.4); Platelet Count 185 10^3/uL (130-400); Red Blood Cell Count 5.33 10^6/uL (4.70-6.10); Red Cell Dist. Width 15.3 % (11.5-14.5); White Blood Cell Count 7.2 10^3/uL (4.8-10.8)
[2024-03-03 05:28] LABS: Blood Urea Nitrogen 46 mg/dl (9-20); Calcium 8.8 mg/dl (8.4-10.2); Carbon Dioxide 24 mmol/L (22-30); Chloride 110 mmol/L (98-107); Estimated Creatinine Clearance 53 ml/min; Glucose 100 mg/dl (70-99); Sodium 143 mmol/L (135-145); eGFR > 60.00
[2024-03-03] MEDS: LASIX 20 MG IV (08:18)
[2024-03-03] MEDS: ZOLOFT 100 MG PO (08:18)
--- NOTE | 2024-03-03 09:00 | PTCARENOTE ---
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 Patient resting comfortably in bed. AAO, VSS. No events noted overnight. No complaints of pain at this time. External catheter in place, yellow urine output. Discharge planned back to previous facility on
Hospice. Call [facility] in reach.
--- NOTE | 2024-03-03 09:32 | W.PN.HOSP.TC ---
Addendum entered and electronically signed by Nirali Barry MD 03/04/24 11:34:
Functional Quadriplegia -complete immobility due to severe physical disability or frailty
Original Note:
Today's Communication/Plan
-
dc back to SNF on hospice
Assessment / Plan
Assessment / Plan
Assessment:
Chronic A flutter with RVR
Underlying permanent Afib listed in records
- continue Toprol XL/Digoxin
- CHADS-VASC of 7 (PVD, CVA, Age, HTN, CHF); unclear why previously not on AC but at this juncture considered higher bleeding risk or fall risk.
- CBC cards following
Acute HFrEF
- CT Suggestive of interstitial edema
- Echo: EF 20-25%
- BNP 53604; PO Lasix 20mg at discharge
- continue GDMT: BB, KACIE as BP allows. Farxiga.
nonischemic myocardial injury from rapid Afib and acute CHF
- trops relatively flat at .23 to .27 range
- conservative management
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
- CT head no acute abnormalities
Essential HTN
- continue KACIE/BB
HLD
PVD
- continue statin
Testicular cancer s/p removal
hx of lung cancer s/p LLL resection ~2011
Anxiety/Depression
- continue Zoloft
- home Remeron
chronic FTT
severe protein calorie malnutrition of chronic illness with suspected prolonged inadequate po intake <75% for >1 month, severe subcutaneous fat (tricep, orbital) and muscle (temporal, clavicle, quads, calf) loss per physical assessment
- on comfort feeds
Dysphagia
- VSE; aborted as patient could not clear mildly thick liquids from airway
- patient/family has opted for comfort feeds and hospice care when discharged to SNF
sacrum pressure injury stage 1
- present on arrival
- wound care
former smoker
DVT ppx: SC heparin
Code: DNR/DNI confirmed by sister Jackie and records
Dispo: Long discussion with sister, family friends and patient. failed VSE and high risk for aspiration in setting of prior CVA, age, malnutrition, new CHF with weakness. PEG tube declined based off living will. All involved including patient ok
with comfort feeds and hospice at discharge. DC to SNF today and initiate hospice care there. CM aware.
More than 30 minutes spent in discharge including
Final examination of the patient
Summarizing hospital stay
Instructions for continuing care to all relevant caregivers
Preparation of discharge records, prescriptions, and referral forms
Total time spent (in minutes): 42
Anticipated Discharge: Today
Subjective/Interval History
-
Date of Service: March 03, 2024
denies any new complaints at present, drinking mostly, minimal solid intake
Objective Data
-
Labs:
Laboratory Results
03/03/24
04:11
WBC 7.2
Hgb 15.6
Hct 46.3
Plt Count 185
Sodium 143
Potassium 4.0
Chloride 110 H
Carbon Dioxide 24
BUN 46 H
Creatinine 0.9
Glucose 100 H
Calcium 8.8
Vital Signs:
Vital Signs
Temp Pulse Resp BP Pulse Ox
97.6 F 77 15 136/94 96
03/03/24 07:24 03/03/24 08:18 03/03/24 06:00 03/03/24 08:18 03/02/24 20:00
I&O
03/02/24 03/03/24 03/04/24
06:59 06:59 06:59
Intake Total 480 / 480
Output Total 550 / 550 650 / 650
Balance -550 / -550 -170 / -170
Physical Exam
-
General: Appears Chronically Ill and Cachectic
HEENT: Normocephalic and Atraumatic
Respiratory: Negative Wheezes
Cardiac: Regular Rhythm and S1/S2
GI: Soft
Genito-urinary: No Costovertebral Tender
Musculoskeletal: No Edema
Neuro: AO x 3
Hematologic / Lymphatic: No Lymphadenopathy
Psych: Calm
Data Reviewed
-
Total Time Spent with Patient (in minutes): 42
Labs: Labs Reviewed by me
--- NOTE | 2024-03-03 09:38 | W.DS.TRANS ---
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
-
Discharge Instructions:
Discharge Diagnosis/Procedures new cardiomyopathy with acute HFrEF, chronic
dysphagia with high risk of aspiration
Diet Regular,As tolerated
Additional Diets comfort feeds to tolerance while on hospice care
Activity As tolerated
Other Services Hospice
Instructions: *PCP/Other [facility] Heart Failure Instructions
Stand-Alone Forms:
Changes to Home Medications: No
Discharge Medications:
DC Medications w/original date entered in [employer]
acetaminophen 325 mg tablet (Tylenol) 650 mg PO Q4HPRN PRN MILD PAIN 02/28/24
bisacodyl 10 mg rectal suppository (Dulcolax (bisacodyl)) 10 mg SC DAILYPRN PRN IF NO BM AFTR MOM 02/28/24
eyelid cleansers pads 1 pad topical BID BOTH EYES 02/28/24
lisinopril 20 mg tablet 20 mg PO DAILY Blood Pressure 02/28/24
magnesium hydroxide 400 mg/5 mL oral suspension (Milk of Magnesia) 2,400 mg PO DAILYPRN PRN CONSTIPATION 02/28/24
mirtazapine 7.5 mg tablet 7.5 mg PO HS Mental Health 02/28/24
sertraline 100 mg tablet 100 mg PO DAILY Mental Health 02/28/24
simvastatin 10 mg tablet (Zocor) 10 mg PO HS High Cholesterol 02/28/24
sodium phosphates 19 gram-7 gram/118 mL enema (Fleet Enema) 118 ml SC DAILYPRN PRN IF NO BM AFTR DULCOLAX 02/28/24
digoxin 125 mcg (0.125 mg) tablet 125 mcg PO NOON #30 tabs 03/03/24
furosemide 20 mg tablet (Lasix) 20 mg PO DAILY #30 tabs 03/03/24
metoprolol succinate 25 mg tablet,extended release 24 hr 25 mg PO DAILY #30 tabs 03/03/24
Home Medication Changes
Pending Results: No
Total time spent discharging patient (in min): 42
--- NOTE | 2024-03-03 11:40 | PTCARENOTE ---
Report called to Jami MONTENEGRO, [facility]
[phone]
[2024-03-03] MEDS: LANOXIN 125 MCG IV (11:51)
--- NOTE | 2024-03-03 13:31 | PTCARENOTE ---
Patient left via EMS back to [facility]. Patient left with all known belongings.
--- NOTE | 2024-03-04 10:09 | PN.CDI ---
CDI
- -
CDI:
Physician Documentation Request
Admit Date: 02/28/24 12:10
Dear Doctor Jhonny,
Please review the following and provide your response in the progress notes.
Clinical Indicators:
Pt admitted with Atrial flutter/ Acute Systolic CHF /FTT/ Severe protein calorie malnutrition/ Left Hemiplegia
Rehab Panel PT 02/28, ' Previous functional Ability Dependent , Non Ambulatory ...Bed Mobility to sit Dependent sit to stand Dependent ... OT evaluation ..Functional Mobility ..Dependent in Toileting, grooming...'
Supervisor Beater Room note 02/28, ' He has some confusion at times, requires max assist for sit-stand and is transferred OOB to chair with mechanical lift. ...'
Pt was initially NPO and ok for comfort feeds as was discharged to start hospice
Please provide in your note the pts current functional status:
Functional Quadriplegia -complete immobility due to severe physical disability or frailty
Weakness only
Other ( please specify)
Use of terms such as suspected, likely, concern for, or probable (associated with a specific diagnosis that is being evaluated, monitored, or treated as if it exists) are acceptable and can be coded in the inpatient setting, when documented at the
time of discharge.
Thank you,
Jessi Owen RN
CDI Specialist
[facility] [facility]
Please use your independent medical judgment in providing your response.
--- NOTE | 2024-03-04 11:50 | W.HF.CON ---
Heart Failure
- LV Function
Left ventricular function study result: LV Ejection fraction </= 35%
Ejection Fraction Percentage: 20-25
- ARNI
Patient already on ARNI: No
Heart Failure ARNI Contraindication: Comfort Measures Only
- ACEI/ARB
Patient already on ACEI/ARB: Yes
- Beta Carey
Patient already on Evidence Based Beta Carey: Yes
- Mineralocorticord Receptor Antagonist
Patient already on MRA: No
Heart Failure MRA Contraindication: Comfort Measures Only
- SGLT-2 Inhibitor
Patient already on SGLT-2 Inhibitor: No
Heart Failure SGLT-2 Inhibitor Contraindication: Comfort Measures
- Afib Anticoagulation
Patient already on Anticoagulation for Afib: No
Heart Failure Afib Anticoagulation Contraindication: Comfort Measures Only
- NYHA CHF Classification
NYHA CHF Classification Level: Class III - Symptoms w/ min exertion, interferes w/ nml daily activity
== END 2024-03-03 13:25 | DRG 291 ==
LOC: IMU 12:10
PROVIDERS: Emergency Medicine; ADMITTING PHYSICIAN Internal Medicine; CONSULT PHYSICIAN Internal Medicine; EMERGENCY PHYSICIAN Emergency Medicine; FAMILY PHYSICIAN Internal Medicine
DX: I11.0 Hypertensive heart disease with heart failure (principal); E43 Unspecified severe protein-calorie malnutrition; I50.21 Acute systolic (congestive) heart failure; R53.2 Functional quadriplegia; I48.21 Permanent atrial fibrillation; I69.354 Hemiplegia and hemiparesis following cerebral infarction affecting left non-dominant side; R64 Cachexia; I48.92 Unspecified atrial flutter; Z68.1 Body mass index [BMI] 19.9 or less, adult; E78.00 Pure hypercholesterolemia, unspecified; R09.02 Hypoxemia; I73.9 Peripheral vascular disease, unspecified; R62.7 Adult failure to thrive; F41.9 Anxiety disorder, unspecified; R13.10 Dysphagia, unspecified; I42.9 Cardiomyopathy, unspecified; L89.151 Pressure ulcer of sacral region, stage 1; I34.0 Nonrheumatic mitral (valve) insufficiency; F32.A Depression, unspecified; I5A Non-ischemic myocardial injury (non-traumatic); Z66 Do not resuscitate; Z85.47 Personal history of malignant neoplasm of testis; Z87.891 Personal history of nicotine dependence; Z85.118 Personal history of other malignant neoplasm of bronchus and lung; Z90.2 Acquired absence of lung [part of]
CPT/HCPCS: 70450; 71275; 74230; 80048; 80053; 83735; 83880; 84443; 84484; 85025; 85027; 85379; 85730; 87070; 87147; 92526; 92610; 92611; 93005; 93306; 96365; 96366; 96367; 96375; 97163; 97166; 99291; J0153; J1160; Q9967